=== PATIENT | male | born 1980 | race Caucasian/White ===

== ENCOUNTER 2017-07-12 08:45 | Emergency (ER) | payer OTHER ==
[~2017-07-12] VITALS: Ht 180.3 cm; Wt 111.1 kg
--- NOTE | 2017-07-12 08:59 | ED NECK/BACK PAIN COMPLAINT ---
History of Present Illness General Chief Complaint: Low Back Pain/Injury Stated Complaint: LOWER BACK PAIN Source: patient Exam Limitations: no limitations Vital Signs & Intake/Output Vital Signs & Intake/Output Vital Signs Date Time Temp Pulse Resp B/P B/P Pulse O2 O2 Flow FiO2 Mean Ox Delivery Rate 07/12 0925 99 Room Air 07/12 0849 97.6 100 16 138/92 97 Room Air Allergies Coded Allergies: NO KNOWN ALLERGIES (06/15/12) Reconcile Medications Hydrocodone/Acetaminophen (Vicodin 5-300 MG Tablet) 5 MG-300 MG TABLET 1 TAB PO BID PRN PAIN Meloxicam (Mobic) 15 MG TABLET 1 TAB PO DAILY PRN PAIN Methylprednisolone. (Medrol) 4 MG TAB.DS.PK 1 DP PO AD INFLAMMATION 6 on day 1 then reduce by one tablet daily until gone Triage Note: 37 Y/O MALE C/O "TAILBONE", LOW BACK PAIN, R HIP PAIN AND R LEG S/P BENDING WRONG AT WORK ON THURSDAY. STATES HE WAS ALREADY EVALD BY WORKMANS COMP AND WAS TOLD "MY HIP IS MISALIGNED". HAS BEEN TAKING MUSCLE RELAXERS WITH NO RELIEF Triage Nurses Notes Reviewed? yes Onset: Gradual Duration: constant Timing: recent history Quality/Severity: severe Location: paraspinous muscles Method of Injury: twisted HPI: Patient is a 37-year-old male who presents emergency room stating that while at work on Thursday 5 days ago patient states that "I was doing some stupid" lifting heavy objects and twisting his back where he had acute onset of sharp stabbing severe generalized back pain which she states that ambulation has mild radiation of pain down his buttock region. Patient was evaluated by work comp and was given 1 dose of tramadol and has been taking ibuprofen with ice with mild relief of symptoms. Patient denies any lower extremity paresthesia saddle paresthesia or bowel or bladder incontinence denies any abdominal pain testicular pain fever chills. ambulation and lumbar spine movements make worse patient currently is on light duty (John Paul Motta) Past History Travel History Traveled to [place] past 21 day No Medical History Any Pertinent Medical History? none Neurological: NONE EENT: NONE Cardiovascular: NONE Respiratory: NONE Gastrointestinal: NONE Hepatic: NONE Renal: NONE Musculoskeletal: NONE Psychiatric: NONE Endocrine: NONE Blood Disorders: NONE Cancer(s): NONE MANAGER OF FINANCIAL PLANNING/Reproductive: NONE Surgical History Surgical History: non-contributory Psychosocial History What is your primary language Panamanian Tobacco Use: Never used Family History Hx Contributory? No (John Paul Motta) Review of Systems Review of Systems Constitutional: Reports: no symptoms. Eyes: Reports: no symptoms. Ears, Nose, Throat, Mouth: Reports: no symptoms. Respiratory: Reports: no symptoms. Cardiovascular: Reports: no symptoms. Gastrointestinal/Abdominal: Reports: no symptoms. Musculoskeletal: Reports: see HPI, muscle pain, muscle stiffness. Skin: Reports: no symptoms. Neurological/Psychological: Reports: no symptoms. All Other Systems: Reviewed and Negative (John Paul Motta) Physical Exam Physical Exam General Appearance: mild distress Head: atraumatic Eyes: Bilateral: normal appearance. Ears, Nose, Throat, Mouth: hearing grossly normal Neck: normal inspection, supple Respiratory: no respiratory distress Cardiovascular: regular rate/rhythm Gastrointestinal: normal bowel sounds, soft Back: decreased range of motion, no vertebral tenderness, paralumbar point tenderness Straight Leg Raising: Right: Pain at ____ degrees (30). Left: Pain at ____ degrees (30). Neurologic/Psych: no motor/sensory deficits, awake, alert Skin: intact, normal color Comments: Bilateral lower extremities myotomes dermatomes DTRs intact Core Measures CVA/TIA Diagnosis: No (John Paul Motta) Progress Differential Diagnosis: aortic dissection, C spine injury, carotid dissection, cauda equina syn, herniated disc, myofascial strain, pyelo/UTI, sciatica, spinal cord inj, thoracic outlet syn, T/L spine injury, ureterolithiasis Plan of Care: no concern of cauda equina syndrome discitis or spinal abscess. Due to history of present illness and exam findings patient will be treated for concerns of lumbar strain and lumbar radiculopathy no central spinous pain , no concern of fx (John Paul Motta) Departure Departure Disposition: HOME OR SELF CARE Condition: Stable Clinical Impression Primary Impression: Lumbar strain Secondary Impressions: Lumbar radicular pain Referrals: Nidia Gonzales MD (PCP/Family) Additional Instructions: As discussed continue to ice the area, begin the prescription meloxicam for pain and inflammation Medrol Dosepak for inflammation and Vicodin for breakthrough pain relief, prescription is waiting at [facility]. If symptoms worsen return to the emergency room, follow-up with your work comp and primary care doctor and physical therapy next week if no better Departure Forms: Customer Survey General Discharge Information Prescriptions: Current Visit Scripts Meloxicam (Mobic) 1 TAB PO DAILY PRN PAIN #7 TAB Methylprednisolone. (Medrol) 1 DP PO AD #1 DP 6 on day 1 then reduce by one tablet daily until gone Hydrocodone/Acetaminophen (Vicodin 5-300 MG Tablet) 1 TAB PO BID PRN PAIN #8 TAB (John Paul Motta) PA/RIDDLER OPERATOR Co-Sign Statement Statement: ED Attending supervision documentation- [] I saw and evaluated the patient. I have also reviewed all the pertinent lab results and diagnostic results. I agree with the findings and the plan of care as documented in the PA's/RIDDLER OPERATOR's documentation. [X] I have reviewed the ED Record and agree with the PA's/RIDDLER OPERATOR's documentation. [] Additions or exceptions (if any) to the PAs/RIDDLER OPERATOR's note and plan are summarized below: [] (Brayden Bains DO
[2017-07-12] MEDS ORDERED: MEDROL4 M2 PO (09:34)
[2017-07-12] MEDS ORDERED: MOBIC15 M1 PO (09:34)
[2017-07-12] MEDS ORDERED: VICODIN 5-3001 EACH PO (09:34)
[2017-07-12 10:05] VITALS: BP 124/79
== END 2017-07-12 10:06 ==
LOC: ERH 08:45
DX: S39.012A Strain of muscle, fascia and tendon of lower back, initial encounter (principal); M54.16 Radiculopathy, lumbar region; X58.XXXA Exposure to other specified factors, initial encounter